=== PATIENT | female | born 1965 | race Caucasian/White ===

== ENCOUNTER 2024-11-12 09:44 | Emergency (ER) | payer MEDICAID ==
[~2024-11-12] VITALS: Ht 160 cm; Wt 52.6 kg
[2024-11-12 09:55] VITALS: BP 156/132; PULSE 78; RESP 17; O2SAT 98
== END 2024-11-12 11:11 | disposition left against medical advice (07) ==
LOC: EDUNIT# 09:44 → ER 09:44
DX: M25.562 Pain in left knee (principal); Z53.21 Procedure and treatment not carried out due to patient leaving prior to being seen by health care provider; W11.XXXA Fall on and from ladder, initial encounter; Y93.89 Activity, other specified; Y92.89 Other specified places as the place of occurrence of the external cause; Y99.8 Other external cause status

== ENCOUNTER 2024-11-17 06:11 | Emergency (ER) | payer MEDICAID ==
[~2024-11-17] VITALS: Ht 160 cm; Wt 52.3 kg
[2024-11-17 06:11] VITALS: TEMP 98.4
[2024-11-17 06:24] VITALS: BP 135/94; PULSE 81; RESP 18; O2SAT 99
--- NOTE | 2024-11-17 06:58 | ED.PDOC ---
Musculoskeletal HPI Comments A 58 YEAR OLD FEMALE PRESENTS TO THE ED WITH COMPLAINT OF LOWER BACK PAIN AND LEFT KNEE PAIN S/P FALL. PATIENT STATES SHE ACCIDENTALLY FELL OFF A SMALL STEP LADDER 2 DAYS AGO AND INJURED HER LEFT KNEE. PATIENT REPORTS SHE IS NOW EXPERIENCING LEFT KNEE PAIN AND LOWER BACK PAIN DUE TO THIS FALL. PATIENT DENIES HEAD INJURY, NECK INJURY, LOC, SADDLE ANESTHESIA, URINARY INCONTINENCE, BOWEL INCONTINENCE, FEVER, CHILLS, SHORTNESS OF BREATH, CHEST PAIN, ABDOMINAL PAIN, NAUSEA, VOMITING, HEADACHE, OR OTHER COMPLAINTS. NO OTHER SYMPTOMS OR MODIFYING FACTORS AT THIS TIME. PATIENT IS ALERT, ORIENTED X 4, AND HAS STEADY GAIT. Chief Complaint: Fall Injury Time Seen by MD: 06:26 Primary Care Provider: [facility] Reviewed Notes: Nurses Notes, Medications, Allergies Home Meds Active Scripts Methocarbamol (Methocarbamol) 500 Mg Tab, 500 MG PO BID, #20 TAB Prov:SULEMAN VINCENT 11/17/24 Acetaminophen (Tylenol 8 Hour Arthritis) 650 Mg Tab, 650 MG PO TID, #30 TAB Prov:SULEMAN VINCENT 11/17/24 Information Source: Patient Mode of Arrival: Ambulatory Location: Left Extremity Location: Back (LOWER BACK PAIN), Knee Timing: Days Prehospital treatment: None Severity: Moderate Able to Move Extremity: Yes Bear Weight: Fully Pain: Moderate Mechanism: Blunt Trauma Circumstances: Fall Onset of Symptoms: After Trauma Symptoms: Swelling, Pain DVT Risk Factors: NONE Last Tetanus: Unknown Associated signs and symptoms: Knee pain, Back pain Past Medical History PAST MEDICAL HISTORY: Denies Surgical History: Denies all surgeries PATTERN CHECKER History: Denies all PATTERN CHECKER Hx Family History Family History: Reviewed,noncontributory to illness Social History Smoker: Non-Smoker Alcohol: Denies ETOH Use Drugs: Denies Drug Use Lives In: Home Constitutional: denies: chills, diaphoresis, fatigue, fever, malaise, sweats, weakness, others EENTM: denies: blurred vision, double vision, ear bleeding, ear discharge, ear drainage, ear pain, ear ringing, eye pain, eye redness, hearing loss, mouth pain, mouth swelling, nasal discharge, nose bleeding, nose congestion, nose pain, photophobia, tearing, throat pain, throat swelling, voice changes, others Respiratory: denies: cough, hemoptysis, orthopnea, SOB at rest, shortness of breath, SOB with excertion, stridor, wheezing, others Cardiovascular: denies: chest pain, dizzy spells, diaphoresis, Dyspnea on exertion, edema, irregular heart beat, left arm pain, lightheadedness, palpitations, PND, syncope, others Gastrointestinal: denies: abdomen distended, abdominal pain, blood streaked bowels, constipated, diarrhea, dysphagia, difficulty swallowing, hematemesis, melena, nausea, poor appetite, poor fluid intake, rectal bleeding, rectal pain, vomiting, others Genitourinary: denies: abnormal vagina bleeding, burning, dyspareunia, dysuria, flank pain, frequency, hematuria, incontinence, pain, , vagina discharge, urgency, others Neurological: denies: dizziness, fainting, headache, left sided numbness, left sided weakness, numbness, paresthesia, pre-existing deficit, right sided numbness, right sided weakness, seizure, speech problems, tingling, tremors, weakness, others Musculoskeletal: reports: back pain (LOWER BACK PAIN), joint pain, joint s welling, muscle pain, others (LEFT KNEE PAIN); denies: gout, muscle stiffness, neck pain Integumetry: denies: bruises, change in color, change in hair/nails, dryness, laceration, lesions, lumps, rash, wounds, others Allergic/Immunocompromised: denies: Difficulty Healing, Frequent Infections, Hives, Itching, others Hematologic/Lymphatic: denies: anemia, blood clots, easy bleeding, easy bruisi ng, swollen glands, others Endocrine: denies: excessive hunger, excessive sweating, excessive thirst, exce ssive urination, flushing, intolerance to cold, intolerance to heat, unexplained weight gain, unexplained weight loss, others Psychiatric: denies: anxiety, bipolar disorder, depression, hopeless, panic disorder, schizophrenia, sleepless, suicidal, others All Other Systems: Reviewed and Negative Physical Exam General Appearance: No Apparent Distress, Normal HEENT: Normal ENT Inspection, PERRL/EOMI, Pharynx Normal, TMs Normal Neck: Full Range of Motion, Non-Tender, Normal, Normal Inspection Respiratory: Chest Non-Tender, Lungs Clear, No Accessory Muscle Use, No Respiratory Distress, Normal Breath Sounds Cardiovascular: No Edema, No JVD, No Murmur, No Gallop, Normal Peripheral Pulses, Regular Rate/Rhythm Breast Exam: Deferred Gastrointestinal: No Organomegaly, Non Tender, No Pulsatile Mass, Normal Bowel Sounds, Soft Genitalia: Deferred Pelvic: Deferred Rectal: Deferred Extremities: No calf tenderness, Normal capillary refill, Normal range of motion, No pedal edema, Swelling (TENDERNESS AND MILD SWELLING ON LEFT INNER KNEE, NO DEFORMITY. ), Tender (AND MILD SWELLING ON LEFT INNER KNEE, NO BONY TEN DERNESS AND DEFORMITY, NORMAL ROM. ) Musculoskeletal : Location: Bilateral Extremity Location: Back Apperance: Tenderness (MUSCLE SPASM ON LOW BACK, NO BONY TENDERNESS, SWELLING AND DEFORMITY. ) Neurologic: Alert, animal physiologist II-XII nml as Tested, No Motor Deficits, Normal Affect, Normal Mood, No Sensory Deficits Cerebellar Function: Normal Reflexes: Normal Skin: Dry, Normal Color, Warm Peripheral Pulses: 2+ carotid (R), 2+ carotid (L), 2+ dorsalis pedis (R), 2+ dorsalis pedis (L) Lymphatic: No Adenopathy Was a procedure done? Was a procedure done?: No Differential Diagnosis EXT Differential Diagnosis: Fracture, Sprain, Dislocation, Contusion, Strain, Bursitis X-Ray, Labs, Meds, VS Vital Signs Date Time Temp Pulse Resp B/P (MAP) Pulse Ox O2 Delivery O2 Flow Rate FiO2 11/17/24 07:02 Room Air 11/17/24 06:24 98.4 81 18 135/94 (108) 99 11/17/24 06:11 98.4 81 18 135/94 (108) 99 98.4 Current Medications Medications (Trade) Dose Ordered Sig/Niharika Route Start Time Stop Time Status Last Admin Acetaminophen (Tylenol Tablet) 1,000 mg ONCE ONCE PO 11/17/24 07:00 11/17/24 07:01 DC 11/17/24 07:06 EXAM: XR Left Knee, 3 Views CLINICAL INDICATION: FALL TECHNIQUE: Three views of the left knee. COMPARISON: None FINDINGS: BONES/JOINTS: Small bony fragment of the medial tibial plateau, likely avulsion fracture. No dislocation. SOFT TISSUES: Unremarkable. OTHER FINDINGS: . .. IMPRESSION: Small bony fragment of the medial tibial plateau, likely avulsion fracture. ATED BY: TARIQ GUPTA MD DICTATED DATE/TIME: 11/17/24733 SIGNED BY: TARIQ GUPTA MD SIGNED DATE/TIME: 11/17/24733 CC: CLINICAL INFORMATION: 58 years old, Female; fall injury. TECHNIQUE: 2 views of the lumbar spine were obtained. COMPARISON: None FINDINGS: Vertebral body alignment is within normal limits. Vertebral body heights are maintained. Posterior elements are grossly intact. No evidence of acute fracture. Multilevel moderate disc space narrowing with associated endplate sclerosis and endplate spurring. Multilevel mild facet hypertrophy. Paraspinal soft tissues are grossly unremarkable. IMPRESSION: 1. No evidence of acute fracture or spondylolisthesis. Correlate with clinical findings. If there remains clinical concern for fracture, CT could be obtained. 2. Nonacute findings as described above. ATED BY: JOHAN MEZA DO DICTATED DATE/TIME: 11/17/24735 SIGNED BY: JOHAN MEZA DO SIGNED DATE/TIME: 11/17/24735 CC: X-Ray, Labs, Meds, VS Comment EXTERNAL MEDICAL RECORDS REVIEWED: [NONE] INDEPENDENT HISTORIANS: [NONE] SOCIAL DETERMINANTS OF HEALTH: [NONE] LABS ORDERED: NONE REVIEWED AND INTERPRETED RESULTS: NONE IMAGING ORDERED: XR L-SPINE, XR KNEE LT TREATMENTS ORDERED: TYLENOL 1G PO, KNEE IMMOBILIZER APPLIED TO PATIENT'S LEFT KNEE. PROCEDURES PERFORMED: NONE CRITICAL CARE TIME: NONE I HAVE DISCUSSED THE PATIENT WITH THE ATTENDING PHYSICIAN DR. LI AND HE AGREES WITH THE PATIENT'S PLAN OF CARE AND DISPOSITION. BASED ON HISTORY OF PRESENT ILLNESS, AND PHYSICAL EXAM, PATIENT WILL BE DISCHARGED HOME. DISCUSSED PLAN FOR DISCHARGE HOME WITH RX []. MEDICATION WARNINGS GIVEN. SHARED DECISION MAKING: PATIENT INSTRUCTED TO FOLLOW UP WITH [facility] IN 1-2 DAYS FOR RE-EVALUATION OF SYMPTOMS. PATIENT VERBALIZES UNDERSTANDING TO RETURN TO ED FOR NEW OR WORSENING SYMPTOMS OR IF FOLLOW UP WITH PCP CANNOT BE OBTAINED. PATIENT FEELS COMFORTABLE GOING HOME AT THIS TIME. ALL QUESTIONS ADDRESSED AT TIME OF DISCHARGE. Images Reviewed?: Images reviewed and evaluated by me Time of 1ST Reevaluation: 08:00 Reevaluation 1ST: Improved Patient Education/Counseling: Diagnosis, Treatment, Need For Follow Up Family Education/Counseling: Diagnosis, Treatment, Need For Follow Up Medical Screening: No EMC Exist At This Time Departure 1 Departure Time of Disposition: 08:00 Impression: Primary Impression: Tibial plateau fracture, left Qualified Codes: S82.142A - Displaced bicondylar fracture of left tibia, initial encounter for closed fracture Additional Impressions: Low back strain Qualified Codes: S39.012A - Strain of muscle, fascia and tendon of lower back, initial encounter Status post fall Disposition: HOME / SELF CARE / HOMELESS Condition: Stable Additional Instructions: FOLLOW-UP WITH PCP IN 1 TO 2 DAYS FOR REFERRAL TO [facility]. TAKE MEDICATIONS PRESCRIBED. RETURN TO ED FOR ANY NEW OR WORSENING SYMPTOMS. e-Prescriptions Methocarbamol (Methocarbamol) 500 Mg Tab 500 MG PO BID, #20 TAB Prov: SULEMAN VINCENT 11/17/24 Acetaminophen (Tylenol 8 Hour Arthritis) 650 Mg Tab 650 MG PO TID, #30 TAB Prov: SULEMAN VINCENT 11/17/24 Discharged With: Self Critical Care Note Critical Care Time?: No Stability Stability form required: No I personally scribed for SULEMAN VINCENT ([email or web address]) on 11/17/24 at 06:58. Electronically submitted by Gilberto Gibson ([email or web address]). I personally scribed for SULEMAN VINCENT ([email or web address]) on 11/17/24 at 07:41. Electronically submitted by Gilberto Gibson ([employer]). I personally scribed for SULEMAN VINCENT ([email or web address]) on 11/17/24 at 07:42. Electronically submitted by Gilberto Gibson ([employer]). SULEMAN VINCENT Nov 17, 2024 06:58
[2024-11-17] MEDS: ACETAMINOPHEN 325 MG TAB PO ONE (07:06)
--- NOTE | 2024-11-17 07:36 | DVH ---
EXAM: XR Left Knee, 3 Views CLINICAL INDICATION: FALL TECHNIQUE: Three views of the left knee. COMPARISON: None FINDINGS: BONES/JOINTS: Small bony fragment of the medial tibial plateau, likely avulsion fracture. No dislo cation. SOFT TISSUES: Unremarkable. OTHER FINDINGS: . .. IMPRESSION: Small bony fragment of the medial tibial plateau, likely avulsion fracture.
--- NOTE | 2024-11-17 07:38 | DVH ---
CLINICAL INFORMATION: 58 years old, Female; fall injury. TECHNIQUE: 2 views of the lumbar spine were obtained. COMPARISON: None FINDINGS: Vertebral body alignment is within normal limits. Vertebral body heights are maintained. Po sterior elements are grossly intact. No evidence of acute fracture. Multilevel moderate disc space na rrowing with associated endplate sclerosis and endplate spurring. Multilevel mild facet hypertrophy. Paraspinal soft tissues are grossly unremarkable. IMPRESSION: 1. No evidence of acute fracture or spondylolisthesis. Correlate with clinical findings. If there rem ains clinical concern for fracture, CT could be obtained. 2. Nonacute findings as described above.
[2024-11-17] MEDS ORDERED: ACET-1080 PO (07:47)
[2024-11-17] MEDS ORDERED: METH-1181 PO (07:47)
== END 2024-11-17 07:51 | disposition home or self-care (01) ==
LOC: ER 06:11
DX: S82.145A Nondisplaced bicondylar fracture of left tibia, initial encounter for closed fracture (principal); S39.012A Strain of muscle, fascia and tendon of lower back, initial encounter; W18.39XA Other fall on same level, initial encounter; Y93.89 Activity, other specified; Y92.89 Other specified places as the place of occurrence of the external cause; Y99.8 Other external cause status
CPT/HCPCS: 29505; 72100; 73562

== ENCOUNTER 2024-12-18 10:02 | Emergency (ER) | payer MEDICAID ==
[~2024-12-18 10:02] MED LIST: ACET-1080 PO; METH-1181 PO
== END 2024-12-18 11:43 | disposition left against medical advice (07) ==
LOC: ER 10:02
DX: M25.562 Pain in left knee (principal); Z53.21 Procedure and treatment not carried out due to patient leaving prior to being seen by health care provider